=== PATIENT | male | born 1960 | race Caucasian/White ===

== ENCOUNTER 2016-08-14 11:47 | Emergency (ER) | payer MEDICARE, OTHER ==
[2016-08-14] VITALS (11 sets, daily range): BP systolic 91–182; BP diastolic 49–97; PULSE 90–132; RESP 16–38; TEMP 98.7; O2SAT 60–100
[~2016-08-14] VITALS: Ht 160 cm; Wt 82.0 kg
[~2016-08-14 11:47] MED LIST: ASPI1TAB69 PO; CALC1TAB87 PO; DICY10CA12 PO; FERR325T PO; FLUT1SPR5 EACH NARE; FLUTI110I INH; GEMF600 PO; IBUP-232 PO; LACTTAB8 PO; LEVO75TA3 PO; LORA-361 PO; OMEP20TA PO; PERI8.6T PO; VENTAER INH
[2016-08-14] MEDS ORDERED: SODIUM CHLOR 0.9% 1000 ML INJ 1,000 ML IV SCH (11:55)
[2016-08-14] MEDS ORDERED: SODIUM CHLORIDE 0.9% FLUSH 10 ML FLUSH IVF PRN (12:00)
[2016-08-14 12:05] LABS: BLOOD GAS BASE EXCESS -16.9 mmol/L (-2-2); BLOOD GAS HCO3 14 mmol/L (22-26); BLOOD GAS METHEMOGLOBIN 0.6 % (0-2); BLOOD GAS O2 HGB SATURATION 95 % (90-100); BLOOD GAS OXYGEN CONTENT 19.2 Vol % (12.0-20.0); BLOOD GAS PCO2 74 mmHg (38-42); BLOOD GAS PO2 129 mmHG (61-120); BLOOD GAS TOTAL HGB 14.4 G/DL (12.0-16.0); TEMP CORR TO 98.6
[2016-08-14 12:06] LABS: CRITICAL VALUE YES; DRAW SITE LT RADIAL; FIO2 100 %; NUMBER OF ARTERIAL PUNCTURES 1; OXYGEN DEVICE VENTILATOR; STAT YES; ULNAR PULSE PRESENT; VENT SETTINGS AC/16/500/+5
--- NOTE | 2016-08-14 12:13 | PD ---
HPI . Respiratory arrest Chief Complaint: Code Blue Time Seen by Provider: 11:53 Travel History International Travel<30 days: No Contact w/Intl Traveler<30days: No Traveled to known affect area: No History of Present Illness HPI This patient was brought to us by [facility] is post a witnessed respiratory arrest. He goes to an adult daycare. He choked on a peanut butter and jelly sandwich. EMS reports a down time of 5-7 minutes prior to their arrival. They were able to remove the foreign body and intubate him within about 3 minutes of their arrival. So, his total downtime was about 10 minutes. He was asystolic on their arrival. He had the return of circulation once the airway was cleared and after he received 2 doses of epinephrine. He presented to us intubated and with a spontaneous heart rate and reasonable blood pressure. PFSH Past Medical History Arthritis: Yes (OSTEO) Anxiety: Yes Depression: Yes Cancer: No High Cholesterol: Yes Cirrhosis: No Dementia: Yes Diminished Hearing: No Endocrine: No GERD: Yes Genitourinary: No Immune Disorder: No Implanted Vascular Access Dvce: No Neurologic: Yes (MENTAL RETARDATION, DOWNS SYNDROME, DEMENTIA) Respiratory: No Ulcer: Yes Past Surgical History Abdominal Surgery: Yes (HERNIA REPAIR) Social History Alcohol Use: No Tobacco Use: No Substance Use: No Allergies-Medications (Allergen,Severity, Reaction): Coded Allergies: No Known Allergies (Verified , 08/14/16) Reported Meds & Prescriptions Reported Meds & Active Scripts Active Lactobacillus Acidophilus 1 Tab Tab 1 Tab PO TIDAC Claritin (Loratadine) 10 Mg Tab 10 Mg PO DAILY Omeprazole 20 Mg Tab 20 Mg PO DAILY Levothyroxine (Levothyroxine Sodium) 75 Mcg Tab 75 Mcg PO DAILY Dicyclomine (Dicyclomine HCl) 10 Mg Cap 10 Mg PO TID Ferrous Sulfate 325 Mg Tab 325 Mg PO DAILY Aspirin 81 Mg Tabdr 81 Mg PO DAILY Flonase Nasal [place] (Fluticasone Nasal [place]) 50 Mcg/Act [place] 50 Mcg EACH NARE BID Ibuprofen 600 Mg Tab 600 Mg PO TID Codie-Colace (Sennosides-Docusate Sodium) 8.6-50 Mg Tab 1 Tab PO HS PRN Ventolin Hfa 18 GM Inh (Albuterol Sulfate) 90 Mcg/Act Aer 1 Puff INH Q6HR PRN Reported Lopid (Gemfibrozil) 600 Mg Tab 600 Mg PO BIDAC Take 30 minutes prior to breakfast and dinner Flovent Hfa 12 GM Inh (Fluticasone Propionate) 110 Mcg/Act Inh 1 Puff INH BID Calcium 600 with Vitamin D (Calcium Carbonate-Cholecalciferol) 600-400 mg-Unit Tab 1 Tab PO DAILY Review of Systems ROS Limitations: Clinical Condition, Intubated, Altered Mental Status, Unresponsive Physical Exam Exam Limitations: Clinical Condition, Altered Mental Status Narrative GENERAL: Patient is intubated. SKIN: Warm and dry. His color is pink. HEAD: Atraumatic. Normocephalic. EYES: Pupils equal and round. Pupils are fixed. Doll's eye maneuver leads to no movement of the eyes. ENT: No nasal bleeding or discharge. Mucous membranes pink and moist. NECK: Trachea midline. CARDIOVASCULAR: Tachycardic rate, regular rhythm. RESPIRATORY: Ventilated. Breath sounds are clear. GASTROINTESTINAL: Abdomen soft, positive bowel sounds. MUSCULOSKELETAL: No obvious deformities. No edema. NEUROLOGICAL: Furman Coma Score is 3. PSYCHIATRIC: Unable to evaluate. Data Data Last Documented VS Vital Signs Date Time Temp Pulse Resp B/P Pulse Ox O2 Delivery O2 Flow Rate FiO2 08/14/16 16:01 132 35 112/50 99 Nasal Cannula 3 08/14/16 15:11 21 08/14/16 11:47 98.7 Orders Electrocardiogram (08/14/16 11:55) Complete Blood Count With Diff (08/14/16 11:55) Comprehensive Metabolic Panel (08/14/16 11:55) Creatine Kinase (Cpk) (08/14/16 11:55) Prothrombin Time / Inr (Pt) (08/14/16 11:55) Act Partial Throm Time (Ptt) (08/14/16 11:55) Troponin I (08/14/16 11:55) Lactic Acid Sepsis Protocol (08/14/16 11:55) Urinalysis - C+S If Indicated (08/14/16 11:55) Arterial Blood Gas (Abg) (08/14/16 11:55) Chest, Single Ap (08/14/16 11:55) Blood Glucose (08/14/16 11:55) Ecg Monitoring (08/14/16 11:55) Iv Access Insert/Monitor (08/14/16 11:55) Oximetry (08/14/16 11:55) Oxygen Administration (08/14/16 11:55) Urinary Catheter Insert/Apply (08/14/16 11:55) Sodium Chloride 0.9% Flush (Ns Flush) (08/14/16 12:00) Sodium Chlor 0.9% 1000 Ml Inj (Ns 1000 M (08/14/16 11:55) Arterial Blood Gas (Abg) (08/14/16 11:54) Urine Culture (08/14/16 12:15) Lidocaine 2% Inj (Xylocaine 2% Inj) (08/14/16 13:30) Lorazepam Inj (Ativan Inj) (08/14/16 13:45) Lorazepam Inj (Ativan Inj) (08/14/16 14:00) Lorazepam Inj (Ativan Inj) (08/14/16 14:15) Propofol 1000 Mg/100 Ml Inj (Diprivan 10 (08/14/16 14:14) Propofol 1000 Mg/100 Ml Inj (Diprivan 10 (08/14/16 14:15) Consult Palliative Care (08/14/16 ) Morphine Inj (Morphine Inj) (08/14/16 15:00) Hospice Consult (08/14/16 15:17) Code Status (08/14/16 15:51) Labs Laboratory Tests Test 08/14/16 08/14/16 11:54 12:15 Blood Gas Puncture Site LT RADIAL Blood Gas Patient Temperature 98.6 Blood Gas HCO3 14 mmol/L Blood Gas Base Excess -16.9 mmol/L Blood Gas Oxygen Saturation 95 % Arterial Blood pH 6.91 Arterial Blood Partial 74 mmHg Pressure CO2 Arterial Blood Partial 129 mmHG Pressure O2 Arterial Blood Oxygen Content 19.2 Vol % Arterial Blood 0.0 % Carboxyhemoglobin Arterial Blood Methemoglobin 0.6 % Blood Gas Hemoglobin 14.4 G/DL Oxygen Delivery Device VENTILATOR Blood Gas Ventilator Setting AC/16/500/+5 Blood Gas Inspired Oxygen 100 % White Blood Count 11.6 TH/MM3 Red Blood Count 4.28 MIL/MM3 Hemoglobin 14.0 GM/DL Hematocrit 43.3 % Mean Corpuscular Volume 101.1 FL Mean Corpuscular Hemoglobin 32.6 PG Mean Corpuscular Hemoglobin 32.3 % Concent Red Cell Distribution Width 15.1 % Platelet Count 346 TH/MM3 Mean Platelet Volume 7.6 FL Neutrophils (%) (Auto) 46.4 % Lymphocytes (%) (Auto) 46.2 % Monocytes (%) (Auto) 6.1 % Eosinophils (%) (Auto) 0.6 % Basophils (%) (Auto) 0.7 % Neutrophils # (Auto) 5.4 TH/MM3 Lymphocytes # (Auto) 5.4 TH/MM3 Monocytes # (Auto) 0.7 TH/MM3 Eosinophils # (Auto) 0.1 TH/MM3 Basophils # (Auto) 0.1 TH/MM3 CBC Comment AUTO DIFF Differential Total Cells 100 Counted Neutrophils % (Manual) 41 % Band Neutrophils % 6 % Lymphocytes % 48 % Monocytes % 1 % Neutrophils # (Manual) 5.9 TH/MM3 Metamyelocytes 2 % Myelocytes 2 % Differential Comment FINAL DIFF MANUAL Platelet Estimate NORMAL Platelet Morphology Comment NORMAL Prothrombin Time 12.5 SEC Prothromb Time International 1.1 RATIO Ratio Activated Partial 31.2 SEC Thromboplast Time Urine Color LIGHT-YELLOW Urine Turbidity CLOUDY Urine pH 7.0 Urine Specific [place] 1.011 Urine Protein 100 mg/dL Urine Glucose (UA) NEG mg/dL Urine Ketones NEG mg/dL Urine Occult Blood MOD Urine Nitrite NEG Urine Bilirubin NEG Urine Urobilinogen LESS THAN 2.0 MG/DL Urine Leukocyte Esterase MOD Urine RBC 24 /hpf Urine WBC 89 /hpf Urine Squamous Epithelial 1 /hpf Cells Urine Amorphous Sediment RARE Urine Bacteria FEW /hpf Microscopic Urinalysis Comment CATH-CULTURE IND Sodium Level 139 MEQ/L Potassium Level 3.5 MEQ/L Chloride Level 101 MEQ/L Carbon Dioxide Level 18.2 MEQ/L Anion Gap 20 MEQ/L Blood Urea Nitrogen 13 MG/DL Creatinine 1.48 MG/DL Estimat Glomerular Filtration 49 ML/MIN Rate Random Glucose 266 MG/DL Lactic Acid Level 9.5 mmol/L Calcium Level 8.8 MG/DL Total Bilirubin 0.2 MG/DL Aspartate Amino Transf 61 U/L (AST/SGOT) Alanine Aminotransferase 89 U/L (ALT/SGPT) Alkaline Phosphatase 122 U/L Total Creatine Kinase 110 U/L Troponin I LESS THAN 0.02 NG/ML Total Protein 7.1 GM/DL Albumin 3.1 GM/DL MDM Medical Decision Making Medical Screen Exam Complete: Yes Emergency Medical Condition: Yes Interpretation(s) EKG shows sinus tachycardia at 127. No acute ischemic change. Differential Diagnosis Differential diagnosis includes primary cardiac arrest, respiratory arrest, head injury, drug intoxication, diabetic coma Narrative Course Patient presented to us via [facility] status post a respiratory followed by cardiac arrest. He was successfully resuscitated in the field in that he now has spontaneous circulation. However, he has a Furman Coma Score of 3. His nub card tender has now produced a DO NOT RESUSCITATE order. CBC & BMP Diagram 08/14/16 12:15 PH 6.91, PCO2 74, PO2 129. This was done very shortly after arrival. Lactic acid is 9.5. LFTs are elevated. Cardiac enzymes negative. UA has moderate leukocyte esterase, 89 WBCs Last Impressions Chest X-Ray 08/14/16 1155 Signed Impressions: Service Date/Time: Sunday, August 14, 2016 12:47 - CONCLUSION: ET tube as above. Chi Nation MD The ET tube is at the origin of the right mainstem bronchus. We will be extubating this patient as soon as all of the family gets here. Therefore, the position of the ET tube will not be addressed currently. It took a while for the patient's entire family together. Then there was a sister who was not on board with the plan. She was given some more time to process the situation. However, the parents were requesting immediate extubation. Therefore, it has been done. The patient has continued to have spontaneous respirations. Sats of been in the 60s. Hospice has been consult. Patient will be discharged from here and transported to a hospice care center. Diagnosis Primary Impression: Respiratory arrest before cardiac arrest Condition: Serious Suha Evans MD Aug 14, 2016 12:13
[2016-08-14 12:30] LABS: AUTOMATED NEUTROPHIL # 5.4 TH/MM3 (1.8-7.7); BASOPHIL # 0.1 TH/MM3 (0-0.2); BASOPHIL % 0.7 % (0.0-2.0); EOSINOPHIL # 0.1 TH/MM3 (0-0.4); EOSINOPHIL % 0.6 % (0.0-4.0); HEMATOCRIT 43.3 % (39.0-51.0); LYMPH % 46.2 % (9.0-44.0); LYMPHOCYTE # 5.4 TH/MM3 (1.0-4.8); MEAN CELL VOLUME 101.1 FL (80.0-100.0); MEAN CORPUSCULAR HEMOGLOBIN 32.6 PG (27.0-34.0); MEAN CORPUSCULAR HGB CONC 32.3 % (32.0-36.0); MONO % 6.1 % (0.0-8.0); NEUT % 46.4 % (16.0-70.0); PLATELET COUNT 346 TH/MM3 (150-450); RED BLOOD COUNT 4.28 MIL/MM3 (4.50-5.90); RED CELL DISTRIBUTION WIDTH 15.1 % (11.6-17.2); WHITE BLOOD COUNT 11.6 TH/MM3 (4.0-11.0)
[2016-08-14 12:32] LABS: HEMO FLAGS AUTO DIFF
[2016-08-14 12:38] LABS: APTT (PATIENT) 31.2 SEC (24.3-30.1); INTERNATIONAL NORMALIZED RATIO 1.1 RATIO; PROTHROMBIN TIME - PATIENT 12.5 SEC (9.8-11.6)
[2016-08-14 12:45] LABS: ALT (GPT) 89 U/L (12-78); ANION GAP 20 MEQ/L (5-15); AST (GOT) 61 U/L (15-37); BICARBONATE 18.2 MEQ/L (21.0-32.0); BLOOD UREA NITROGEN 13 MG/DL (7-18); CHLORIDE 101 MEQ/L (98-107); GLOMERULAR FILTRATION RATE 49 ML/MIN (>89); POTASSIUM 3.5 MEQ/L (3.5-5.1); SODIUM (NA) 139 MEQ/L (136-145)
[2016-08-14 12:48] LABS: ALKALINE PHOSPHATASE 122 U/L (45-117); CREATINE KINASE 110 U/L (39-308); TOTAL BILIRUBIN ADULT 0.2 MG/DL (0.2-1.0)
[2016-08-14 12:56] LABS: BACTERIA, URINE FEW /hpf; BLOOD, URINE MOD (NEG); COMMENT (UR) CATH-CULTURE IND; CULTURE IF INDICATED CATH CULTURE IND; GLUCOSE,URINE NEG (NEG); KETONE, URINE NEG (NEG); NITRITE,URINE NEG (NEG); SQUAMOUS EPITHELIAL CELL URINE 1 /hpf (0-5); URINE COLOR LIGHT-YELLOW (YELLW/STRAW)
--- NOTE | 2016-08-14 13:06 | RADRPT ---
EXAM DATE/TIME: 08/14/2016 12:47 [facility] COMPARISON: No previous studies available for comparison. INDICATIONS : Post intubation, post code MEDICAL HISTORY : None. SURGICAL HISTORY : None. ENCOUNTER: Initial ACUITY: 1 day PAIN SCORE: Non-responsive. LOCATION: Bilateral chest FINDINGS: Endotracheal tube is noted in the distal tip just at the origin of the right mainstem bronchus. There is patchy atelectasis at the left base. Cardiomegaly. Degenerative changes of the spine. CONCLUSION: ET tube as above. Chi Nation MD on August 14, 2016 at 13:04 Board Certified Radiologist. This report was verified electronically.
[2016-08-14 13:08] LABS: BANDS 6 % (0-6); METAMYELOCYTES 2 % (0-1); MYELOCYTES 2 % (0-0); NEUTROPHIL # MANUAL DIFF 5.9 TH/MM3 (1.8-7.7); POLYS (SEG NEUTROPHILS) 41 % (16-70); WBC DIFF SAMPLE 100
[2016-08-14 13:09] LABS: PLATELET ESTIMATE SMEAR NORMAL (NORMAL); PLATELET MORPHOLOGY NORMAL (NORMAL); SCAN/DIFF FINAL DIFF MANUAL
[2016-08-14] MEDS ORDERED: LIDOCAINE HCL 2% 20 ML VIAL E-TRACHE ONE (13:30)
[2016-08-14] MEDS ORDERED: LORazepam 2 MG/ML VIAL ONE (13:45)
[2016-08-14] MEDS ORDERED: LORazepam 2 MG/ML VIAL IV PUSH ONE ×3 (14:00→16:45)
[2016-08-14] MEDS ORDERED: PROPOFOL 1000 MG/100 ML INJ 100 ML ONE (14:14)
[2016-08-14] MEDS ORDERED: PROPOFOL 1000 MG/100 ML BTL IV PRN (14:15)
[2016-08-14 14:24] LABS: LACTIC ACID GHOST NOT REPORTABLE
[2016-08-14] MEDS ORDERED: MORPHINE SULFATE 8 MG/ML INJ IV PUSH ONE ×2 (15:00→16:45)
--- NOTE | 2016-08-15 17:30 | EKG ---
Date Performed: 08/14/2016 Time Performed: 12:07:43 PTAGE: 56 years EKG: SINUS TACHYCARDIA ABNORMAL RHYTHM ECG NO PREVIOUS TRACING DOCTOR: Elmer Rock Interpretating Date/Time 08/15/2016 17:28:03
== END 2016-08-14 18:22 | disposition hospice, inpatient (51) ==
LOC: NEPC 11:47
DX: I46.9 Cardiac arrest, cause unspecified (principal); Q90.9 Down syndrome, unspecified; Z79.899 Other long term (current) drug therapy
CPT/HCPCS: 36600; 51702; 71010; 80053; 81001; 82550; 82805; 83605; 84484; 85007; 85027; 85610; 85730; 87086; 93005; 94002; 96361; 96365; 96374; 96375; 96376; 99291; J2060; J2270; J7030